=== PATIENT | female | born 1975 | race Caucasian/White ===

== ENCOUNTER 2018-05-08 21:03 | Emergency (ER) | payer BC ==
[~2018-05-08] VITALS: Ht 160 cm; Wt 150.0 kg
[~2018-05-08 21:03] MED LIST: ACET325S8 PO; ALBU1AER INH; ATEN-100 PO; BUPR-197 PO; CYCL-36 PO; HYDR200T42 PO; LASI20TA PO; POTA1TAB4; ZOFR4TAB3 SL
[2018-05-08 21:08] VITALS: BP 169/76; PULSE 77; RESP 20; TEMP 98; O2SAT 97
[2018-05-08] MEDS ORDERED: IBUP1TAB7 PO (21:52)
[2018-05-08] MEDS ORDERED: PLAQ200T PO (21:52)
[2018-05-08] MEDS ORDERED: CYCL10TA PO (21:52)
[2018-05-08] MEDS ORDERED: BUPR150XL PO (21:52)
[2018-05-08] MEDS ORDERED: ATEN25TA PO (21:52)
[2018-05-08] MEDS ORDERED: SODIUM CHLOR 0.9% 1000 ML INJ 1,000 ML IV SCH (22:23)
[2018-05-08] MEDS ORDERED: SODIUM CHLORIDE 0.9% FLUSH 10 ML FLUSH IV FLUSH PRN (22:30)
--- NOTE | 2018-05-08 22:51 | RADRPT ---
EXAM DATE: 05/08/2018 10:45 PM EDT AGE/SEX: 42 years / Female INDICATIONS: Syncope. Possible allergic reaction. Double vision and swollen tongue. CLINICAL DATA: This is the patient's initial encounter. Patient reports that signs and symptoms have been present for 1 day and indicates a pain score of 0/10. MEDICAL/SURGICAL HISTORY: None. . Lumpectomy left breast. COMPARISON: No prior exams available for comparison. FINDINGS: PA and lateral views of the chest demonstrate the lungs to be symmetrically aerated without evidence of mass, infiltrate or effusion. The cardiomediastinal contours are unremarkable. Osseous structures are intact. CONCLUSION: No active disease. Electronically signed by: Seamus Marsh MD 05/08/2018 10:49 PM EDT
--- NOTE | 2018-05-08 22:58 | RADRPT ---
EXAM DATE: 05/08/2018 10:55 PM EDT AGE/SEX: 42 years / Female INDICATIONS: Altered mental status. CLINICAL DATA: This is the patient's initial encounter. Patient reports that signs and symptoms have been present for 1 day and indicates a pain score of 0/10. MEDICAL/SURGICAL HISTORY: Asthma. Cardiovascular disease. None. RADIATION DOSE: 56.35 CTDI (mGy) COMPARISON: [facility], CT BRAIN W/O CONTRAST, 12/13/2011. . TECHNIQUE: CT of the head without contrast. Using automated exposure control and adjustment of the mA and/or kV according to patient size, radiation dose was kept as low as reasonably achievable to ob tain optimal diagnostic quality images. DICOM format image data is available electronically for revi ew and comparison. FINDINGS: Cerebrum: The ventricles are normal for age. No evidence of midline shift, mass lesion, hemorrhage or acute infarction. No extraaxial fluid collections are seen. Posterior Fossa: The cerebellum and brainstem are intact. The 4th ventricle is midline. The cerebe llopontine angle is unremarkable. Extracranial: The visualized portion of the orbits is intact. Skull: The calvaria is intact. No evidence of skull fracture. CONCLUSION: 1. No acute intracranial abnormalities. Electronically signed by: Seamus Marsh MD 05/08/2018 10:56 PM EDT
[2018-05-08 23:02] LABS: AUTOMATED NEUTROPHIL # 6.3 TH/MM3 (1.8-7.7); BASOPHIL # 0.1 TH/MM3 (0-0.2); BASOPHIL % 0.6 % (0.0-2.0); EOSINOPHIL # 0.2 TH/MM3 (0-0.4); EOSINOPHIL % 2.5 % (0.0-4.0); HEMOGLOBIN 12.9 GM/DL (11.6-15.3); LYMPH % 21.5 % (9.0-44.0); MEAN CELL VOLUME 82.5 FL (80.0-100.0); MEAN CORPUSCULAR HEMOGLOBIN 27.3 PG (27.0-34.0); MEAN CORPUSCULAR HGB CONC 33.1 % (32.0-36.0); MEAN PLATELET VOLUME 8.5 FL (7.0-11.0); MONO % 8.2 % (0.0-8.0); MONOCYTE # 0.8 TH/MM3 (0-0.9); NEUT % 67.2 % (16.0-70.0); PLATELET COUNT 244 TH/MM3 (150-450); RED BLOOD COUNT 4.72 MIL/MM3 (4.00-5.30); WHITE BLOOD COUNT 9.3 TH/MM3 (4.0-11.0)
[2018-05-08 23:12] LABS: BACTERIA, URINE RARE /hpf; BILIRUBIN, URINE NEG (NEG); BLOOD, URINE MOD (NEG); GLUCOSE,URINE NEG (NEG); KETONE, URINE NEG (NEG); MUCUS URINE FEW /lpf (OCC); NITRITE,URINE NEG (NEG); SQUAMOUS EPITHELIAL CELL URINE 9 /hpf (0-5); URINE COLOR YELLOW (YELLW/STRAW); URINE LEUKOCYTE ESTERASE LARGE (NEG)
[2018-05-08 23:26] LABS: ALBUMIN 3.2 GM/DL (3.4-5.0); ALKALINE PHOSPHATASE 101 U/L (45-117); ALT (GPT) 33 U/L (10-53); AST (GOT) 30 U/L (15-37); BICARBONATE 26.7 MEQ/L (21.0-32.0); BLOOD UREA NITROGEN 19 MG/DL (7-18); CALCIUM 8.3 MG/DL (8.5-10.1); CHLORIDE 111 MEQ/L (98-107); CREATININE 0.91 MG/DL (0.50-1.00); GLOMERULAR FILTRATION RATE 68 ML/MIN (>89); GLUCOSE,RANDOM 95 MG/DL (74-106); SODIUM (NA) 144 MEQ/L (136-145); TOTAL BILIRUBIN ADULT 0.4 MG/DL (0.2-1.0); TOTAL PROTEIN 6.8 GM/DL (6.4-8.2)
[2018-05-08 23:54] VITALS: RESP 20
[2018-05-08] MEDS ORDERED: MACR100C2 PO (23:54)
--- NOTE | 2018-05-08 23:54 | PD ---
HPI Chief Complaint: Allergic/Adverse Reaction Time Seen by Provider: 22:11 Travel History International Travel<30 days: No Contact w/Intl Traveler<30days: No Traveled to known affect area: No History of Present Illness HPI 42-year-old woman presents emerged from complaining of unusual episodes starting late this afternoon. States while watching TV she began to get blurry vision, feeling of a cold flushing feeling over her entire body, anxious feeling , and some headache. She states never had similar symptoms before. She has a history of lupus and RA. Is on Plaquenil and a monthly infusion as well. She feels improved now. Still some headache and will bit of blurry vision. Still some warm feeling behind her ears. She otherwise had been feeling generally well and healthy. No other complaints. History Past Medical History Narrative Medical RA Lupus PNEUMOCCOCAL Vaccine (Year): 2008 : 0 Social History Alcohol Use: No Tobacco Use: No Allergies-Medications (Allergen,Severity, Reaction): Coded Allergies: aspirin (Unverified Allergy, Severe, Shortness of Breath, 05/08/18) PT STATES SHE CAN NOT TAKE IT SHE GETS SOB AND N/V WITH ASA diatrizoate meglumine (Unverified Allergy, Severe, Shortness of Breath, ) gadobenic acid (Unverified Allergy, Severe, Shortness of Breath, 05/08/18) gadodiamide (Unverified Allergy, Severe, Shortness of Breath, 05/08/18) gadoteridol (Unverified Allergy, Severe, Shortness of Breath, 05/08/18) iodixanol (Unverified Allergy, Severe, Shortness of Breath, 05/08/18) iohexol (Unverified Allergy, Severe, Shortness of Breath, 05/08/18) penicillin G (Unverified Allergy, Severe, Shortness of Breath, 05/08/18) pregabalin (Unverified Allergy, Severe, ITCHING., 05/08/18) adhesive (Unverified Allergy, Intermediate, ITCHING AND WELTS, 05/08/18) hydromorphone (Unverified Allergy, Intermediate, Chest Pain, 05/08/18) CHEST TIGHTNESS, "FEELS FUNNY." latex (Unverified Allergy, Intermediate, ITCHING AND REDNESS, 05/08/18) cephalexin (Unverified Adverse Reaction, Intermediate, HEADACHE, 05/08/18) guaifenesin (Unverified Adverse Reaction, Intermediate, CRAMPS, 05/08/18) ciprofloxacin (Unverified Adverse Reaction, Mild, Nausea/Vomiting, 05/08/18 ) clarithromycin (Unverified Adverse Reaction, Mild, Nausea/Vomiting, ) Uncoded Allergies: BANDAIDS (Allergy, Severe, 11/04/06) DYE (Allergy, Severe, Dizziness, 06/30/17) Reported Meds & Prescriptions Reported Meds & Active Scripts Active Reported Flexeril (Cyclobenzaprine HCl) 10 Mg Tab 10 Mg PO DAILY Ibuprofen 800 Mg Tab 800 Mg PO Q8H PRN Wellbutrin Xl 24 HR (Bupropion HCl) 150 Mg Tab 150 Mg PO DAILY Plaquenil (Hydroxychloroquine Sulfate) 200 Mg Tab 200 Mg PO TID Take with food Atenolol 25 Mg Tab 25 Mg PO BID Review of Systems Except as stated in HPI: all other systems reviewed are Neg Physical Exam Narrative GENERAL: Well-appearing 42-year-old woman, no acute distress. SKIN: Focused skin assessment warm/dry. HEAD: Atraumatic. Normocephalic. EYES: Pupils equal and round. No scleral icterus. No injection or drainage. ENT: No nasal bleeding or discharge. Mucous membranes pink and moist. NECK: Trachea midline. No JVD. CARDIOVASCULAR: Regular rate and rhythm. No murmur appreciated. RESPIRATORY: No accessory muscle use. Clear to auscultation. Breath sounds equal bilaterally. GASTROINTESTINAL: Abdomen soft, non-tender, nondistended. Hepatic and splenic margins not palpable. MUSCULOSKELETAL: No obvious deformities. No clubbing. No cyanosis. No edema. NEUROLOGICAL: Awake and alert. Cranial nerves II through XII are intact. Strength full and equal upper and lower extremities. Sensation intact and equal upper and lower extremities. Normal finger to nose. Normal heel to christopher. Normal speech. Normal mental status. PSYCHIATRIC: Appropriate mood and affect; insight and judgment normal. Data Data Last Documented VS Vital Signs Date Time Temp Pulse Resp B/P (MAP) Pulse Ox O2 Delivery O2 Flow Rate FiO2 05/08/18 21:08 98.0 77 20 169/76 (107) 97 Orders Orders Complete Blood Count With Diff (05/08/18 22:23) Comprehensive Metabolic Panel (05/08/18 22:23) Urinalysis - C+S If Indicated (05/08/18 22:23) Chest, Pa & Lat (05/08/18 22:23) Ct Brain W/O Iv Contrast(Rout) (05/08/18 22:23) Blood Glucose (05/08/18 22:23) Ecg Monitoring (05/08/18 22:23) Iv Access Insert/Monitor (05/08/18 22:23) Oximetry (05/08/18 22:23) Sodium Chloride 0.9% Flush (Ns Flush) (05/08/18 22:30) Sodium Chlor 0.9% 1000 Ml Inj (Ns 1000 M (05/08/18 22:23) Urine Culture (05/08/18 22:49) Labs Laboratory Tests Test 05/08/18 22:49 White Blood Count 9.3 TH/MM3 Red Blood Count 4.72 MIL/MM3 Hemoglobin 12.9 GM/DL Hematocrit 39.0 % Mean Corpuscular Volume 82.5 FL Mean Corpuscular Hemoglobin 27.3 PG Mean Corpuscular Hemoglobin Concent 33.1 % Red Cell Distribution Width 14.0 % Platelet Count 244 TH/MM3 Mean Platelet Volume 8.5 FL Neutrophils (%) (Auto) 67.2 % Lymphocytes (%) (Auto) 21.5 % Monocytes (%) (Auto) 8.2 % Eosinophils (%) (Auto) 2.5 % Basophils (%) (Auto) 0.6 % Neutrophils # (Auto) 6.3 TH/MM3 Lymphocytes # (Auto) 2.0 TH/MM3 Monocytes # (Auto) 0.8 TH/MM3 Eosinophils # (Auto) 0.2 TH/MM3 Basophils # (Auto) 0.1 TH/MM3 CBC Comment DIFF FINAL Differential Comment Urine Color YELLOW Urine Turbidity HAZY Urine pH 6.0 Urine Specific [place] 1.019 Urine Protein NEG mg/dL Urine Glucose (UA) NEG mg/dL Urine Ketones NEG mg/dL Urine Occult Blood MOD Urine Nitrite NEG Urine Bilirubin NEG Urine Urobilinogen LESS THAN 2 mg/dL Urine Leukocyte Esterase LARGE Urine RBC 10 /hpf Urine WBC 45 /hpf Urine Squamous Epithelial Cells 9 /hpf Urine Bacteria RARE /hpf Urine Mucus FEW /lpf Microscopic Urinalysis Comment CATH-CULTURE IND Blood Urea Nitrogen 19 MG/DL Creatinine 0.91 MG/DL Random Glucose 95 MG/DL Total Protein 6.8 GM/DL Albumin 3.2 GM/DL Calcium Level 8.3 MG/DL Alkaline Phosphatase 101 U/L Aspartate Amino Transf (AST/SGOT) 30 U/L Alanine Aminotransferase (ALT/SGPT) 33 U/L Total Bilirubin 0.4 MG/DL Sodium Level 144 MEQ/L Potassium Level 4.4 MEQ/L Chloride Level 111 MEQ/L Carbon Dioxide Level 26.7 MEQ/L Anion Gap 6 MEQ/L Estimat Glomerular Filtration Rate 68 ML/MIN MDM Medical Decision Making Medical Screen Exam Complete: No Emergency Medical Condition: No Interpretation(s) LABS: CBC is unremarkable. CMP is generally unremarkable. UA with some pyuria Head CT negative. Chest x-ray negative. Differential Diagnosis Infection, flush or chills, CVA, lupus cerebritis, other Narrative Course 42-year-old woman with her usual episode of flushed feeling cold feeling with some blurry vision and tongue fullness. She looks well. No rash or other evidence of allergic reaction. She is benign neurologic exam. Positive symptoms unlikely to represent stroke. At this point recommend treatment for the UTI based on the pyuria. Unclear if this explains her close outpatient follow-up. Diagnosis Primary Impression: UTI (urinary tract infection) Additional Impression: Blurry vision Additional Instructions: Take antibiotics as prescribed. Follow-up closely with her primary physician. Return emerged part for any new or worsening symptoms. Med/Other Pt SpecificInfo: Prescription(s) given Scripts Nitrofurantoin Monohydrate Macrocrystals (Macrobid) 100 Mg Cap 100 MG PO BID for Infection for 5 Days, #10 CAP 0 Refills Prov: Derrick Davidson MD 05/08/18 Disposition: 01 DISCHARGE HOME Condition: Stable Derrick Davidson MD May 08, 2018 23:54
[2018-05-08] MEDS ORDERED: BACT800T5 PO (23:59)
== END 2018-05-09 00:14 | disposition home or self-care (01) ==
LOC: NEPC 21:03
DX: N39.0 Urinary tract infection, site not specified (principal); H53.2 Diplopia; M32.9 Systemic lupus erythematosus, unspecified
CPT/HCPCS: 70450; 71046; 80053; 81001; 85025; 87086; 99285; J7030